=== PATIENT | male | born 1960 ===

== ENCOUNTER 2016-11-24 05:46 | Inpatient (IN) | payer OTHER ==
[2016-11-24] VITALS (13 sets, daily range): BP systolic 85–124; BP diastolic 54–85
[~2016-11-24] VITALS: Ht 180.3 cm; Wt 89.8 kg
[~2016-11-24 05:46] MED LIST: LIPITOR40 MG ORAL; LISINOPRIL20 MG ORAL; VITAMIN B12-FO1 EAC1 PO; VITAMIN D310000 UNIT PO
[2016-11-24] MEDS ORDERED: Thrombin 5000 units TOPIC ONE ×2 (06:46→11:51)
[2016-11-24] MEDS ORDERED: Gelfoam Absorbable 1gm powder pkt TOPIC ONE ×4 (06:47→12:56)
[2016-11-24] MEDS ORDERED: Bacitracin 50000 Units Vial ONE (06:47)
[2016-11-24] MEDS ORDERED: Bacitracin Oint 15gm Tube TOPIC ONE (06:47)
[2016-11-24] MEDS ORDERED: Thrombin 5000 units spray kit TOPIC ONE ×4 (06:47→12:56)
[2016-11-24] MEDS ORDERED: Bupivacaine w/Epi 0.5% 30ml Vial INJ ONE (06:47)
[2016-11-24] MEDS ORDERED: Morphine Sulfate 10mg/ml Inj ONE (07:00)
[2016-11-24] MEDS ORDERED: Zemuron 50mg/5ml Inj IV ONE (07:00)
[2016-11-24] MEDS ORDERED: LR 1000ml ONE (07:00)
[2016-11-24] MEDS ORDERED: ePHEDrine 50mg/ml Inj ONE (07:00)
[2016-11-24] MEDS ORDERED: Sterile Water Irrig 1000ml IRRIG ONE (07:00)
[2016-11-24] MEDS ORDERED: Succinylcholine 20mg/ml 10ml vial ONE (07:00)
[2016-11-24] MEDS ORDERED: fentaNYL 250mcg/5ml ONE (07:00)
[2016-11-24] MEDS ORDERED: Midazolam 2mg/2ml Inj ONE (07:00)
[2016-11-24] MEDS ORDERED: Propofol 200mg/20ml IV ONE ×2 (07:00→10:37)
[2016-11-24] MEDS ORDERED: Neostigmine 1mg/ml 10ml Inj ONE (07:00)
[2016-11-24] MEDS ORDERED: Phenylephrine 10mg/ml Vial ONE (07:00)
[2016-11-24] MEDS ORDERED: Ketorolac 30mg Inj ONE (07:00)
[2016-11-24] MEDS ORDERED: Dexamethasone 4mg/ml vial ONE (07:00)
[2016-11-24] MEDS ORDERED: NS Irrig 1000ml ONE (07:00)
[2016-11-24] MEDS ORDERED: Glycopyrrolate 0.2mg/ml 1ml Vial ONE (07:00)
[2016-11-24] MEDS ORDERED: Propofol 1,000mg/ 100ml btl IV ONE (07:00)
--- NOTE | 2016-11-24 07:52 | Pre-Procedure Note/Attestation ---
Pre-Procedure Note/Attestation Complete Prior to Procedure Planned Procedure: bilateral Procedure Narrative: Posterior lumbar decompression at L4-5 and L5-S1 with posterolateral arthrodesis and pedicle screw fixation from L4 to S1, with allograft, autograft and iliac crest bone marrow aspiration, interbody PEEK graft at L5-S1 level. Attestation I attest that I discussed the nature of the procedure; its benefits; risks and complications; and alternatives (and the risks and benefits of such alternatives ), prior to the procedure, with the patient (or the patient's legal medical device sales representative). I attest that, if there was a reasonable possibility of needing a blood transfusion, the patient (or the patient's legal medical device sales representative) was given the [place] Department [employer] Services standardized written summary, pursuant to the [place] Blood Safety Act ([place] Health and Safety Code # 1645, as amended). I attest that I re-evaluated the patient just prior to the surgery and that there has been no change in the patient's H&P, except as documented below: DAVEY BERNSTEIN Nov 24, 2016 07:52
[2016-11-24] MEDS ORDERED: Vancomycin 1gm/D5W 275ml IVPB ONE ×2 (08:00)
[2016-11-24] MEDS ORDERED: Pantoprazole Inj IVP ONE (08:00)
[2016-11-24] MEDS ORDERED: LR 1000ml 1,000 ML IVLG SCH (09:38)
--- NOTE | 2016-11-24 09:38 | Anethesia Preoperative Eval ---
Anesthesia Pre-op PMH/ROS General Date of Evaluation: Nov 24, 2016 Time of Evaluation: 07:10 Anesthesiologist: Gin ASA Score: ASA 2 Mallampati Score Class I : Soft palate, uvula, fauces, pillars visible Class II: Soft palate, uvula, fauces visible Class III: Soft palate, base of uvula visible Class IV: Only hard plate visible Mallampati Classification: Class II Surgeon: Mireille Diagnosis: Lumbar radiculopathy Surgical Procedure: L4-L5-S1 laminotomy with decompression and interbody fusion Anesthesia History: none Family History: no anesthesia problems Allergies: Coded Allergies: No Known Allergies (Unverified , 11/23/16) Medications: see eMAR Past Medical History Cardiovascular: Reports: HTN - mild, Denies: CAD, [place], valve dz, arrhythmia, other Pulmonary: Denies: asthma, COPD, JOSE DANIEL, other Gastrointestinal/Genitourinary: Reports: GERD - mild, Denies: CRI, ESRD, other Neurologic/Psychiatric: Reports: other, Denies: dementia, CVA, depression/anxiety, TIA Endocrine: Denies: DM, hypothyroidism, steroids, other HEENT: Denies: cataract (L), cataract (R), glaucoma, GAMBELL (L), GAMBELL (R), other Hematology/Immune: Denies: anemia, DVT, bleeding disorder, other Musculoskeletal/Integumentary: Denies: OA, RA, DJD, DDD, edema, other Other: other - overweight PMH Narrative: as above PSxH Narrative: ACDF Hernia repair Anesthesia Pre-op Phys. Exam Physician Exam Last Vital Signs Date Time Temp Pulse Resp B/P (MAP) Pulse Ox O2 Delivery O2 Flow Rate FiO2 11/24/16 06:36 97.8 59 18 124/85 97 Room Air Constitutional: NAD Neurologic: CN 2-12 intact Cardiovascular: RRR, no M/R/G Respiratory: CTA Gastrointestinal: S/NT/ND Airway Exam Mallampati Score: Class II MO: full Neck: flexible ROM: full Teeth: intact Anesthesia Pre-op A/P Labs see chart Studies Pre-op Studies: EKG - NSR, CXR - WNL Risk Assessment & Plan Assessment: ASA 2 Plan: GA with ETT prone position, neuromonitoring Status Change Before Surgery: No Pre-Antibiotics Drug: Vancomycin 1gr. Gentamycin 80 mg. Given Within 1 Hr of Incision: Yes Time Given: 08:10 CHLOE WALKER M.D. Nov 24, 2016 09:38
[2016-11-24] MEDS ORDERED: DiphenhydrAMINE 50mg/ml Inj IVP PRN ×2 (09:45→12:00)
[2016-11-24] MEDS ORDERED: Midazolam 2mg/2ml Inj IVP PRN (09:45)
[2016-11-24] MEDS ORDERED: Hydromorphone 0.5mg/0.5ml inj IVP PRN (09:45)
[2016-11-24] MEDS ORDERED: Meperidine 25mg/0.5ml Inj (FOR RIGORS ONLY) IV PRN (09:45)
[2016-11-24] MEDS ORDERED: Ketorolac 30mg Inj IV PRN (09:45)
[2016-11-24] MEDS ORDERED: Rate Change PCA 1 Each MISC PRN (12:00)
[2016-11-24] MEDS ORDERED: Naloxone 0.4mg/ml Inj IVP PRN (12:00)
[2016-11-24] MEDS ORDERED: LORazepam 1mg tab ORAL PRN (12:00)
[2016-11-24] MEDS ORDERED: PCA HYDROmorphone 1mg/ml 30 ML IV PRN (12:00)
--- NOTE | 2016-11-24 14:40 | Immediate Post-Op Evaluation ---
Immediate Post-Op Evalulation Immediate Post-Op Evalulation Procedure: L4-L5-S1 laminotomy with interbody fusion Date of Evaluation: Nov 24, 2016 Time of Evaluation: 14:39 IV Fluids: 2000 Blood Products: none Estimated Blood Loss: 250 Urinary Output: 550 Blood Pressure Systolic: 95 Blood Pressure Diastolic: 57 Pulse Rate: 86 Respiratory Rate: 22 O2 Sat by Pulse Oximetry: 98 Temperature (Fahrenheit): 98.9 Pain Score (1-10): 3 Nausea: No Vomiting: No Complications none Patient Status: awake, patent, extubated, none Hydration Status: adequate CHLOE WALKER M.D. Nov 24, 2016 14:40
--- NOTE | 2016-11-24 14:52 | Brief Operative Note ---
Immediate Post Operative Note Operative Note Chief Complaint: severe low back pain and bilateral lower extremity radiculopathy R>L Pre-op Diagnosis: Intractable discogenic low back pain and radiculopathy right worse than left leg lack of improvement from conservative care herniated disc at L4-5 and disc collapse at L5-S1 Procedure: 1. left L4 hemilaminotomy, medial facetectomy and foraminotomy with central ligamentectomy and lateral recess decompression. 2. Left L5 hemilaminotomy, medial facetectomy and foraminotomy with central ligamentectomy and lateral recess decompression. 3. Right L5-S1 transforaminal approach and decompression of the L5 nerve root with hemilaminotomy and foraminotomy and central ligamentectomy. 4. Transpedicular fixation through paramedian intramuscular approach, at L4, L5 , and S1 level bilaterally, using 5.0 by 60 mm screws,Medacta system. 5. posterolateral arthrodesis at L45- and L5-S1 levels,bilaterally, using allograft (Charles), iliac bone marrow aspirate and autograft from lamina, and 65 mm rods. 6. repair of cerebrospinal fluid leak at L5-S1 on the right side, with duragen and epidural fat graft through laminectomy. 7. Application of epidural fat graft to L4-5 laminectomy defect. 8. Aspiration of bone marrow from Right iliac crest. 9. [place] of local bone from Laminotomy for grafting. 10. Intra-operative supervision, use and interpretation of fluoroscopy for localization of spine and placement of lumbar hardware. 11.Intra-operative neuromonitoring with SSEPs, DEPs and pedicle screw stimulation. 12.Intra-operative microdissection with operative microscope. 13. Neurolysis of the L5 nerve root bilaterally. 14. placement of subfascial and epidural drains. Post-op Diagnosis: same as pre-op Findings: consistent w/pre-op dx studies Surgeon: Davey Kendrick MD Teacher'S Assistant: Jeronimo Young MD Anesthesiologist: Dr. Gin VALADEZ Anesthesia: general Specimen: none Complications: none Condition: stable Fluids: 1700 cc Estimated Blood Loss: volume - 250 Drains: hemovac Implant(s) used?: Yes - Medacta pedicle screw system, Joann DAVEY KENDRICK Nov 24, 2016 14:52
[2016-11-24] MEDS ORDERED: Milk of Magnesia 30ml Ud ORAL PRN (15:30)
--- NOTE | 2016-11-24 15:30 | General Progress Note ---
Progress Note Progress Note Neurosurgery Rec room S/ Comfortable. No leg pain. No Headache O/ Last 24 Hour Vital Signs Date Time Temp Pulse Resp B/P (MAP) Pulse Ox O2 Delivery O2 Flow Rate FiO2 11/24/16 15:10 84 15 104/58 97 Nasal Cannula 3.0 11/24/16 15:00 83 17 93/55 96 Nasal Cannula 3.0 11/24/16 14:46 17 11/24/16 14:45 90 18 90/58 97 Nasal Cannula 3.0 11/24/16 14:40 86 22 98 11/24/16 14:35 96 15 85/54 96 Simple Mask 6.0 11/24/16 14:30 95 14 87/54 98 Simple Mask 6.0 11/24/16 14:23 99.1 97 13 85/55 97 Simple Mask 6.0 11/24/16 06:36 97.8 59 18 124/85 97 Room Air Alert and oriented x4 Moves all extremities well normal sensation drains minimal output doing well Admit updated DAVEY BERNSTEIN Nov 24, 2016 15:30
--- NOTE | 2016-11-24 16:16 | Diagnostic Imaging Report ---
Indication: PAIN Technique: Digital intraoperative images Comparison: None Findings: Initial images demonstrate there are clips located posterior to what are presumably the L3-4 this, the L4-5 disc, and S1. Subsequent images document posterior fusion of L4, L5, and S1 Impression: Intraoperative imaging, as described
[2016-11-24] MEDS ORDERED: PCA Education Pamphlet MISC ONE (18:00)
[2016-11-24] MEDS: Pericolace tab ORAL SCH (19:00)
[2016-11-24] MEDS: PCA shift volume MISC SCH (19:13)
[2016-11-24] MEDS ORDERED: Vancomycin 1 GM in D5W 275 ML IV SCH (21:00)
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
[2016-11-25 00:34] VITALS: BP 117/73
[2016-11-25 04:25] VITALS: BP 110/73
[2016-11-25] MEDS: PCA shift volume MISC SCH (07:00)
[2016-11-25 07:04] LABS: BASOPHILS % (AUTO) 0.2 % (0.0-2.0); EOSINOPHILS % (AUTO) 0.1 % (0.0-3.0); LYMPHOCYTES % (AUTO) 15.5 % (20.0-45.0); MEAN CORPUSCULAR HEMOGLOBIN 30.2 PG (27.0-31.0); MEAN CORPUSCULAR HGB CONC 34.4 G/DL (32.0-36.0); MEAN CORPUSCULAR VOLUME 88 FL (80-99); MEAN PLATELET VOLUME 6.5 FL (6.5-10.1); MONOCYTES % (AUTO) 9.3 % (1.0-10.0); NEUTROPHILS % (AUTO) 74.9 % (45.0-75.0); PLATELET COUNT 149 K/UL (150-450); RED BLOOD COUNT 3.99 M/UL (4.70-6.10); RED CELL DISTRIBUTION WIDTH 11.3 % (11.6-14.8); WHITE BLOOD COUNT 8.3 K/UL (4.8-10.8)
[2016-11-25 07:30] LABS: ANION GAP 8 (5-15); CALCIUM 8.4 mg/dL (8.6-10.2); CARBON DIOXIDE 28 mEQ/L (20-30); CHLORIDE 106 mEQ/L (98-107); GLOMERULAR FILTRATION RATE > 60 mL/min (>60); HEMOLYSIS 5; POTASSIUM 4.2 mEQ/L (3.4-4.9); SODIUM 142 mEQ/L (135-145)
[2016-11-25 08:00] VITALS: BP 108/79
[2016-11-25] MEDS ORDERED: Lisinopril 20mg tab ORAL SCH (09:00)
[2016-11-25] MEDS: Lisinopril 20mg tab ORAL SCH (09:04)
[2016-11-25] MEDS: Pericolace tab ORAL SCH ×2 (09:04→17:31)
--- NOTE | 2016-11-25 11:18 | 48 Hour Post Anesthesia Eval ---
Post Anesthesia Evaluation Procedure: L4-L5-S1 laminotomy with interbody fusion Date of Evaluation: Nov 25, 2016 Time of Evaluation: 11:17 Blood Pressure Systolic: 118 0: 72 Pulse Rate: 76 Respiratory Rate: 22 Temperature (Fahrenheit): 97.6 O2 Sat by Pulse Oximetry: 98 Airway: patent Nausea: No Vomiting: No Pain Intensity: 3 Hydration Status: adequate Cardiopulmonary Status: stable Mental Status/LOC: patient returned to baseline Follow-up Care/Observations: n/a Post-Anesthesia Complications: none Follow-up care needed: N/A CHLOE WALKER M.D. Nov 25, 2016 11:18
--- NOTE | 2016-11-25 12:10 | General Progress Note ---
Progress Note Progress Note S/ Incisonal pain under control. No leg pain. No headaches. No Flatus O/ Vs: Last 24 Hour Vital Signs Date Time Temp Pulse Resp B/P (MAP) Pulse Ox O2 Delivery O2 Flow Rate FiO2 11/25/16 11:18 76 22 98 11/25/16 09:04 108/79 11/25/16 08:00 16 11/25/16 08:00 98.2 97 20 108/79 97 Room Air 2.0 11/25/16 04:25 97.9 92 18 110/73 97 Room Air 11/25/16 04:00 16 11/25/16 00:34 97.6 75 19 117/73 98 Nasal Cannula 3.0 11/24/16 20:03 97.6 72 18 103/65 97 Nasal Cannula 2.0 11/24/16 20:00 17 11/24/16 16:40 96.3 75 17 100/63 98 Nasal Cannula 2.0 11/24/16 16:30 15 11/24/16 16:15 98.0 81 15 100/67 99 Nasal Cannula 3.0 11/24/16 16:00 76 15 97/61 98 Nasal Cannula 3.0 11/24/16 16:00 18 11/24/16 15:45 92 14 100/57 98 Nasal Cannula 3.0 11/24/16 15:30 88 12 99/58 98 Nasal Cannula 3.0 11/24/16 15:30 13 11/24/16 15:16 99.1 11/24/16 15:15 15 11/24/16 15:10 84 15 104/58 97 Nasal Cannula 3.0 11/24/16 15:00 83 17 93/55 96 Nasal Cannula 3.0 11/24/16 15:00 17 11/24/16 14:46 17 11/24/16 14:45 90 18 90/58 97 Nasal Cannula 3.0 11/24/16 14:40 86 22 98 11/24/16 14:35 96 15 85/54 96 Simple Mask 6.0 11/24/16 14:30 95 14 87/54 98 Simple Mask 6.0 11/24/16 14:23 99.1 97 13 85/55 97 Simple Mask 6.0 Alert and oriented. Pt's at bedside Motor exam 5/5 in the upper and lower extremities sensory normal incision dressing changed and left HV removed. Incsion completely dry and flat. No erythema Labs: Laboratory Tests Test 11/25/16 05:25 White Blood Count 8.3 K/UL (4.8-10.8) Red Blood Count 3.99 M/UL (4.70-6.10) L Hemoglobin 12.0 G/DL (14.2-18.0) L Hematocrit 35.0 % (42.0-52.0) L Mean Corpuscular Volume 88 FL (80-99) Mean Corpuscular Hemoglobin 30.2 PG (27.0-31.0) Mean Corpuscular Hemoglobin Concent 34.4 G/DL (32.0-36.0) Red Cell Distribution Width 11.3 % (11.6-14.8) L Platelet Count 149 K/UL (150-450) L Mean Platelet Volume 6.5 FL (6.5-10.1) Neutrophils (%) (Auto) 74.9 % (45.0-75.0) Lymphocytes (%) (Auto) 15.5 % (20.0-45.0) L Monocytes (%) (Auto) 9.3 % (1.0-10.0) Eosinophils (%) (Auto) 0.1 % (0.0-3.0) Basophils (%) (Auto) 0.2 % (0.0-2.0) Sodium Level 142 mEQ/L (135-145) Potassium Level 4.2 mEQ/L (3.4-4.9) Chloride Level 106 mEQ/L (98-107) Carbon Dioxide Level 28 mEQ/L (20-30) Anion Gap 8 (5-15) Blood Urea Nitrogen 14 mg/dL (7-23) Creatinine 1.0 mg/dL (0.7-1.2) Estimat Glomerular Filtration Rate > 60 mL/min (>60) Glucose Level 110 mg/dL (74-106) H Calcium Level 8.4 mg/dL (8.6-10.2) L Magnesium Level 2.0 mg/dL (1.7-2.5) doing wel Flat x 24 grs without headache s/p CSK leak repair elevate slowly bowel care PT Care plan D/w with pt, and nursing in detail. DAVEY BERNSTEIN Nov 25, 2016 12:10
[2016-11-25] MEDS: HYDROmorphone 1mg/ml Carpuject IVP PRN ×2 (12:19→17:31)
[2016-11-25 12:47] VITALS: BP 105/68
[2016-11-25 15:59] VITALS: BP 123/71
[2016-11-25] MEDS ORDERED: Norco 7.5mg/325mg tab ORAL PRN (18:15)
[2016-11-25] MEDS ORDERED: HYDROmorphone 1mg/ml Carpuject IVP PRN (18:15)
[2016-11-25 20:00] VITALS: BP 122/82
[2016-11-25] MEDS: Norco 7.5mg/325mg tab ORAL PRN (21:26)
[2016-11-26] VITALS: BP 116/84
[2016-11-26] MEDS: Norco 7.5mg/325mg tab ORAL PRN ×3 (01:19→12:28)
[2016-11-26 04:00] VITALS: BP 119/76
[2016-11-26 08:00] VITALS: BP 124/75
[2016-11-26] MEDS: Lisinopril 20mg tab ORAL SCH (09:01)
[2016-11-26] MEDS: Pericolace tab ORAL SCH (09:01)
[2016-11-26 12:00] VITALS: BP 127/78
--- NOTE | 2016-11-26 12:38 | General Progress Note ---
Progress Note Progress Note neurosurgery POD#2 S/ ambulated several times. No headache postural or reclined. Incisional pain under control with orals. Positive flatus. Voiding well. O/ Vs: Last 24 Hour Vital Signs Date Time Temp Pulse Resp B/P (MAP) Pulse Ox O2 Delivery O2 Flow Rate FiO2 11/26/16 12:00 97.7 83 17 127/78 97 Room Air 11/26/16 09:01 124/75 11/26/16 08:00 97.8 92 18 124/75 97 Room Air 11/26/16 04:00 98.0 87 18 119/76 94 Room Air 11/26/16 00:00 98.7 97 18 116/84 95 Room Air 11/25/16 20:00 98.8 97 18 122/82 98 Room Air 11/25/16 15:59 98.3 88 20 123/71 99 Room Air 11/25/16 12:47 97.2 76 18 105/68 97 Room Air Alert and oriented x4. at bedside. Pt pleasant comfortable and smiling. Neck supple. upper extremities 5/5/ lower extremities 5/5 sensation normal in all 4 extremities abd soft less distended dressing changed and R side HV removed Incision completely flat. No drainage. No erythema Labs. Labs Test 11/25/16 05:25 White Blood Count 8.3 K/UL (4.8-10.8) Red Blood Count 3.99 M/UL (4.70-6.10) Hemoglobin 12.0 G/DL (14.2-18.0) Hematocrit 35.0 % (42.0-52.0) Mean Corpuscular Volume 88 FL (80-99) Mean Corpuscular Hemoglobin 30.2 PG (27.0-31.0) Mean Corpuscular Hemoglobin Concent 34.4 G/DL (32.0-36.0) Red Cell Distribution Width 11.3 % (11.6-14.8) Platelet Count 149 K/UL (150-450) Mean Platelet Volume 6.5 FL (6.5-10.1) Neutrophils (%) (Auto) 74.9 % (45.0-75.0) Lymphocytes (%) (Auto) 15.5 % (20.0-45.0) Monocytes (%) (Auto) 9.3 % (1.0-10.0) Eosinophils (%) (Auto) 0.1 % (0.0-3.0) Basophils (%) (Auto) 0.2 % (0.0-2.0) Sodium Level 142 mEQ/L (135-145) Potassium Level 4.2 mEQ/L (3.4-4.9) Chloride Level 106 mEQ/L (98-107) Carbon Dioxide Level 28 mEQ/L (20-30) Anion Gap 8 (5-15) Blood Urea Nitrogen 14 mg/dL (7-23) Creatinine 1.0 mg/dL (0.7-1.2) Estimat Glomerular Filtration Rate > 60 mL/min (>60) Glucose Level 110 mg/dL (74-106) Calcium Level 8.4 mg/dL (8.6-10.2) Magnesium Level 2.0 mg/dL (1.7-2.5) s/p lumbar fusion L4 - S1 with CSF leak repair No evidence of spinal fluid leak or pseudomeningocele. doing well discharge instructions reviewed with pt his and nursing in detail. In case of Headache, fever>101, drainage from the wound pt and wide asked to call me (cell phone provided to them) directly or goto the ER. F/u in 2 weeks with me. DAVEY BERNSTEIN Nov 26, 2016 12:38
[2016-11-26] MEDS ORDERED: MIRALAX17 G2 ORAL (13:04)
[2016-11-26] MEDS ORDERED: CYCLOBENZAPRINE10 MG ORAL (13:06)
--- NOTE | 2016-11-27 05:30 | Discharge Summary ---
DATE OF ADMISSION: 11/24/2016 DATE OF DISCHARGE: 11/26/2016 DISCHARGE DIAGNOSES: 1. Status post posterior lumbar decompressive surgery. 2. Pedicle screw fixation, L4 through S1 level. 3. Posterolateral arthrodesis and repair of cerebrospinal fluid leak, right L5-S1 level with dural graft and epidural fat application. HISTORY OF PRESENT ILLNESS: Please refer to chart for detailed History and Physical. HOSPITAL COURSE: The patient was admitted on 11/24/2016, underwent posterior lumbar decompressive surgery, repair of intraoperative cerebrospinal fluid leak, posterolateral arthrodesis and fusion from L4 through S1 level. He is doing well. He has been ambulating without evidence of postural headaches or any evidence of cerebrospinal fluid leakage. He had a subfascial drain on the right side and epidural drain on the left side, which were removed without incident. His pain is under control. He has been discharged home with appropriate discharge instructions. DISPOSITION: Home. DISCHARGE MEDICATIONS: Include Flexeril and Mathews. DISCHARGE ACTIVITY: The patient is asked to rest for the next two days and start ambulating on day three after discharge. He has a walker at home. He is being given a lumbar abdominal binder and lumbar corset. The lumbar corset will be delivered to him at home. DIET: Regular. He is also instructed regarding high-fiber, high-protein diet. DISCHARGE FOLLOWUP: Discharge followup in two weeks with Dr. Kendrick. Instructions also include in case of postural headaches, fever more than 101, drainage from the incision to call myself directly with my cell phone provided to them or go to the nearest emergency room. Otherwise, routine followup will be between two to three weeks from the date of discharge. COMPLICATIONS: None. CONSULTATIONS: Included Physical Therapy. Jhon Kendrick M.D. DR: AILEEN JOB#: [id number] CC:
== END 2016-11-26 14:00 | disposition home or self-care (01) | DRG 460 ==
LOC: SDSOVERFLO 05:46 → 3E 16:05
DX: M51.16 Intervertebral disc disorders with radiculopathy, lumbar region (principal); I10 Essential (primary) hypertension; M48.06 Spinal stenosis, lumbar region; M51.17 Intervertebral disc disorders with radiculopathy, lumbosacral region; M48.07 Spinal stenosis, lumbosacral region; V89.2XXS Person injured in unspecified motor-vehicle accident, traffic, sequela; E78.5 Hyperlipidemia, unspecified; Z87.891 Personal history of nicotine dependence
CPT/HCPCS: 36415; 72020; 76001; 80048; 83735; 85025; 86850; 86900; 86901; 87081; 94003; 94150; C9399; J1580; J2250; J2370; J2710